=== PATIENT | male | born 1975 | race Caucasian/White ===

== ENCOUNTER 2018-08-20 14:31 | Emergency (ER) | payer BC ==
[~2018-08-20] VITALS: Ht 175.3 cm; Wt 109.1 kg
[2018-08-20 14:36] VITALS: Ht 175.3 cm; Wt 109.1 kg
[2018-08-20] MEDS ORDERED: LISINOPRIL10 MG (14:37)
[2018-08-20] MEDS ORDERED: ARTHROTEC 501 TAB.EC PO (17:04)
[2018-08-20 17:31] VITALS: BP 137/91
== END 2018-08-20 17:32 | disposition home or self-care (01) ==
LOC: D.ER 14:31
DX: M19.012 Primary osteoarthritis, left shoulder (principal); I10 Essential (primary) hypertension

== ENCOUNTER 2018-09-29 06:26 | Emergency (ER) | payer BC ==
[~2018-09-29] VITALS: Ht 175.3 cm; Wt 109.1 kg
[~2018-09-29 06:26] MED LIST: ARTHROTEC 501 TAB.EC PO; LISINOPRIL10 MG
[2018-09-29 06:33] VITALS: Ht 175.3 cm; Wt 109.1 kg
[2018-09-29] MEDS ORDERED: ULTRAM50 MG PO (09:25)
[2018-09-29] MEDS ORDERED: MEDROL DOSE PACK4 MG PO (09:26)
[2018-09-29 09:53] VITALS: BP 136/80
== END 2018-09-29 09:54 | disposition home or self-care (01) ==
LOC: D.ER 06:26 → EDBD 06:26 → D.ER 09:54
DX: M54.2 Cervicalgia (principal); G89.29 Other chronic pain